=== PATIENT | female | born 1955 | race Caucasian/White ===

== ENCOUNTER 2020-05-14 06:19 | Day surgery (SDC) | payer MEDICARE, BC, SELFPAY ==
[2020-05-14 06:30] VITALS: BP 140/78; PULSE 65; RESP 16; TEMP 36.7; O2SAT 95
[2020-05-14] MEDS: Lactated Ringers 1,000 ML 80 ML IV ×2 (06:54→07:52)
--- NOTE | 2020-05-14 07:16 | HPE_ITS ---
Date of service: 05/14/20 Time of Service: 07:16 History of Present Illness History of Present Illness Chief Complaint: right bunion deformity Narrative: 64-year-old female with progressive pain associated with a right bunion deformity which is now interfering with shoe gear comfortable ambulation. Nonoperative treatments have failed to provide sufficient relief of symptoms. [facility] Medical History Chronic toe pain, left foot H/O tinea corporis Hyperlipemia Surgical History H/O: hysterectomy History of bunionectomy of left great toe Social History Smoking/Tobacco Use Status: Never Alcohol Intake: current Alcohol Intake frequency: a few times a week Drug use: Never Substance use type: does not use Do you feel safe at home: Yes Do you feel safe in your relationship?: Yes Meds Home Medications and Allergies Home Medications Medication Instructions Recorded Confirmed Type ketoconazole 30 gm TOPICAL PRN PRN 07/07/15 05/11/20 History lorazepam 0.5 mg PO PRN PRN 07/07/15 05/14/20 History simvastatin 40 mg PO HS 07/07/15 05/14/20 History ibuprofen 600 mg PO .1 PO Q6H PAIN #40 tab 07/09/15 05/11/20 Rx Allergies Allergy/AdvReac Type Severity Reaction Status Date / Time No Known Drug Allergies Allergy Unverified 05/14/20 06:28 insect stings AdvReac Unknown Uncoded 05/14/20 06:28 Exam Narrative Exam Narrative: 64-year-old female in no acute distress for surgical repair of right bunion deformity. Head is normocephalic Eyes PERRLA Hearing is adequate Uvular is midline airway looks assessable no suspicious oral lesions noted Heart had regular rate and rhythm. I detected no gallops rubs or murmurs Lung yoo were clear Abdomen was soft, bowel sounds x4 Peripheral pulses are manually pulse palpable at the ankles graded minus 2 out of 4 to plus 1 out of 4. No peripheral edema was noted. Capillary refills under 3 seconds to all toes. Muscle groups of 5 out of 5 bilaterally Skeletal exam is remarkable for a right HAV deformity. Large medial bump noted. Periarticular tenderness appreciated to direct palpation. No joint effusion identified no crepitance noted. Lateral rotation of the hallux is appreciated. Neurologically grossly intact. Toes were downgoing. Impressions: Symptomatic right HAV deformity. Plan: Sylvia is being brought to the OR for surgical repair of right bunion deformity. Risk and complications have been discussed including the potential for pain, scarring, infection, nonunion, malunion, delayed union of the osteotomy potentially requiring revisional procedures. Difficulty with retained hardware potentially requiring its removal was discussed. No promises made to the final outcome of surgery. Informed consents been obtained. Results Last Vital Signs Temp 36.7 C 05/14/20 06:30 Pulse 65 05/14/20 06:30 Resp 16 05/14/20 06:30 BP 140/78 05/14/20 06:30 Pulse Ox 95 05/14/20 06:30 COVID-19 Screening Have you,or household,traveled outside [place] in last 14 days?: No Had IN PERSON contact w/suspected or confirmed C-19 person: No
[2020-05-14] MEDS: ceFAZolin 1 GM/50 ML BAG IVPB (07:27)
[2020-05-14] MEDS: Bupivacaine 0.5% Pres-Free 30 ML VIAL (07:32)
[2020-05-14] MEDS: Lidocaine 1% Multi-Dose 50 ML VIAL (07:32)
[2020-05-14] MEDS: Dexamethasone 4 MG/ML VIAL (08:27)
--- NOTE | 2020-05-14 08:43 | ROE_ITS ---
Date of service: 05/14/20 Time of Service: 08:43 Operative Note Operative Note DATE OF PROCEDURE: 05/14/20 PRE-OP DIAGNOSIS: Hallux abductovalgus deformity right foot POST-OP DIAGNOSIS: same PROCEDURE: Kieran type bunionectomy with internal screw fixation 2.7 Synthes cortical SURGEON: Olvin Solorzano ANESTHESIA: MAC ESTIMATED BLOOD LOSS: 1 PATHOLOGY: none sent TOURNIQUET TIME: 53 COMPLICATIONS: None Patient was transported to: same day Patient's condition: stable Implants: Synthes 2.7 cortical screw Indications: Cyst 64-year-old female with progressive pain associated with a right bunion deformity which is interfering with weightbearing ambulation shoe gear and daily activities poorly responsive to nonoperative treatment. Procedure Description: Sylvia was brought to the operative suite placed in the supine position timeout was performed by protocol. The right foot was anesthetized with 10 cc of a 50: 50 mixture, 1% lidocaine plain, 0.5% Marcaine plain. The right foot was then prepped and draped in the usual sterile podiatric fashion. The right foot was exsanguinated well-padded ankle tourniquet inflated 250 mmHg. Attention was directed to the dorsal aspect of the first MPJ where a 5 cm incision was made medial parallel to the EHL tendon. The incision was deepened in controlled depth fashion hemostasis acquired with electrocautery as needed. Contracture along the lateral side of the joint was appreciated so a lateral capsulotomy and adductor tendon release was performed. Attention was now directed to the medial side of the joint with an inverted L capsulotomy was performed. The first metatarsal head was delivered into the surgical wound. Hypertrophy along the medial and dorsal aspect of the first metatarsal head was appreciated. Mild degenerative change of the articular surfaces were noted. With power instrumentation the medial hypertrophy from the first metatarsal head was resected. An offset V osteotomy was then performed through the O fragment of the first metatarsal head. The head was translocated laterally impacted and fixated with a 2.7 Synthes cortical screw 14 mm in length. A second screw was attempted but it spun out and was removed. There was excellent stability within the osteotomy and the single screw fixation and I opted to leave her construct as it sat. The medial shelf was resected all rough and bony edges were rasped smooth. Copious irrigation was performed with normal saline. The joint capsule was repaired with simple interrupted suture 3-0 Vicryl with a medial capsulorrhaphy being performed. Subcutaneous layer was repaired with simple interrupted suture 4-0 Vicryl. The hallucis extensor hallucis brevis tendon was then tenotomized and the hallux sat in a rectus position. The skin was then coapted with a continuous running suture 4-0 Monocryl. 4 mg dexamethasone phosphate was infused deeply into the wound. Mastisol half-inch Steri-Strips Xeroform gauze fluff compression dressings were applied. Tourniquet was released at 53 minutes with vascularity returning imme diately to all toes. Sylvia left the OR with vital signs stable vascular status intact will be followed by myself in the office next week.
--- NOTE | 2020-05-14 08:50 | W.PM.DSUDISC ---
Discharge Plan Disposition Patient Disposition: HOME Condition: Good Discharge Details Attending Provider: Olvin Solorzano Primary Care Provider: Olvin Solorzano Home Meds and New Rx's Prescriptions: New hydrocodone-acetaminophen [[place]] 5-325 mg tablet 1 tab PO Q6H PRN (Reason: pain) Qty: 9 RF: 0 ibuprofen 600 mg tablet 600 mg PO Q6H PRN (Reason: pain and inflamtion) Qty: 60 RF: 1 Continued simvastatin 40 MG tablet 40 mg PO HS RF: 0 lorazepam 0.5 MG tablet 0.5 mg PO PRN PRNRF: 0 ketoconazole 30 GM cream 30 gm Topical PRN PRNRF: 0 ibuprofen 600 MG tablet 600 mg PO .1 PO Q6H PAIN Qty: 40 RF: 1 Discharge Instructions Activity:: Activity as Tolerated Remove Dressings/Wound Care:: Do Not Remove Shower/Bathe:: Cover Diet:: Normal Diet Discharge Orders Discharge Orders: Discharge Order (Routine); Ordered 05/14/20 Ordered By: Olvin Solorzano DS: Diagnosis Discharge Diagnosis (1) Hallux valgus (acquired), right foot: Status: Acute
[2020-05-14 09:14] VITALS: BP 136/81; PULSE 70; RESP 16; TEMP 36.6; O2SAT 93
== END 2020-05-14 09:45 | disposition home or self-care (01) ==
PROVIDERS: PCP Podiatrist; Visit Provider Podiatrist
PROC: (CPT 28292; principal; 2020-05-14 07:30)
DX: M20.11 Hallux valgus (acquired), right foot (principal)
CPT/HCPCS: 28296; 99223; J0690; J1100; J2001

== ENCOUNTER 2020-07-23 06:17 | Day surgery (SDC) | payer MEDICARE, BC, SELFPAY ==
[2020-07-23 06:42] VITALS: BP 142/77; PULSE 70; RESP 18; TEMP 36.3; O2SAT 96
[2020-07-23] MEDS: Lactated Ringers 1,000 ML 80 ML IV (07:02)
[2020-07-23] MEDS: ceFAZolin 1 GM/50 ML BAG IVPB (07:31)
[2020-07-23] MEDS: Bupivacaine 0.5% Pres-Free 30 ML VIAL (07:43)
--- NOTE | 2020-07-23 07:59 | PDOC.DSDIS_ITS ---
Discharge Plan Disposition Patient Disposition: HOME Condition: Good Discharge Details Reason For Visit: removal symptomatic hardware right 1st metatarsal Attending Provider: Olvin Solorzano Primary Care Provider: Isidra Almaraz Home Meds and New Rx's Prescriptions: No Action simvastatin 40 MG tablet 40 mg PO HS RF: 0 lorazepam 0.5 MG tablet 0.5 mg PO PRN PRNRF: 0 ketoconazole 30 GM cream 30 gm Topical PRN PRNRF: 0 ibuprofen 600 MG tablet 600 mg PO .1 PO Q6H PAIN Qty: 40 RF: 1 hydrocodone-acetaminophen [[place]] 5-325 mg tablet 1 tab PO Q6H PRN (Reason: pain) Qty: 9 RF: 0 ibuprofen 600 mg tablet 600 mg PO Q6H PRN (Reason: pain and inflamtion) Qty: 60 RF: 1 Discharge Instructions Activity:: Elevate Remove Dressings/Wound Care:: Do Not Remove Shower/Bathe:: Cover Diet:: Normal Diet Discharge Orders Discharge Orders: Discharge Order (Routine); Ordered 07/23/20 Ordered By: Olvin Solorzano DS: Diagnosis Discharge Diagnosis (1) Fixation hardware in foot: Status: Acute
--- NOTE | 2020-07-23 08:01 | W.PM.OP ---
Date of service: 07/23/20 Time of Service: 08:01 Operative Note Operative Note DATE OF PROCEDURE: 07/23/20 PRE-OP DIAGNOSIS: Symptomatic hardware left first metatarsal neck right foot PROCEDURE: Removal symptomatic screw first metatarsal neck right. SURGEON: Olvin Solorzano ANESTHESIA: local ESTIMATED BLOOD LOSS: 1 PATHOLOGY: none sent COMPLICATIONS: None Patient was transported to: same day Patient's condition: stable Indications: 64-year-old female status post bunionectomy with osteotomy internal screw fixation with symptoms associated with a loose screw requiring surgical removal first metatarsal neck right foot. Procedure Description: Sylvia was brought to the operative suite placed in the supine position with the right foot was prepped and draped in the usual sterile podiatric fashion. Local anesthesia was employed with 5 cc of a 50: 50 mixture 1% lidocaine with epinephrine, 0.5% Marcaine plain. A 1 cm incision was placed over the previous cicatrix over the prominent screw. The incision was deepened with a curved hemostat. The extensor tendon was retracted laterally. A Mobile elevator was then used and blunt dissection performed coming down to the screw head just above the bony surface. Soft tissue was removed from the screw head and the local [place] truck driver was used to successfully remove the retained screw. Copious irrigation was performed with normal saline. The wound was closed with simple interrupted suture 4-0 nylon. Xeroform gauze fluff pressure dressing was applied. Sponge and sharp counts were correct. Sylvia left the OR with vital signs stable vascular status. She will be followed next week.
[2020-07-23 08:27] VITALS: BP 116/71; PULSE 65; RESP 16; TEMP 36.3; O2SAT 95
== END 2020-07-23 08:53 | disposition home or self-care (01) ==
PROVIDERS: PCP Internal Medicine; Visit Provider Podiatrist
PROC: (CPT 20680; principal; 2020-07-23 07:30)
DX: Z96.7 Presence of other bone and tendon implants (principal); T84.89XA Other specified complication of internal orthopedic prosthetic devices, implants and grafts, initial encounter
CPT/HCPCS: 20680; J0690

== ENCOUNTER → 2025-07-16 13:47 | Outpatient (BNVA) | payer MEDICARE, BC, SELFPAY | PROVIDERS: PCP Internal Medicine; Referring Provider Internal Medicine; Visit Provider Podiatrist | DX: M20.42 Other hammer toe(s) (acquired), left foot (principal); S90.32XA Contusion of left foot, initial encounter; W20.8XXA Other cause of strike by thrown, projected or falling object, initial encounter | CPT/HCPCS: 99203 ==

== ENCOUNTER → 2025-07-16 15:13 | Outpatient (CLI) | payer MEDICARE, BC, SELFPAY ==
--- NOTE | 2025-07-16 14:30 | DI.RAD_ITS ---
Exam(s) XR FOOT LT COMPLETE EXAM: XR FOOT LT COMPLETE CLINICAL HISTORY: Left 2nd toe pain/injury, S93.505A, sprain lt second toe. TECHNIQUE: 2D digital imaging was performed. Three views. COMPARISON: No exams were available for comparison FINDINGS: BONES: No acute fracture is present. No bony destructive lesion is seen. Postsurgical changes with screw in place at the 1st metatarsal head. JOINTS: No dislocation present. There are degenerative changes at the 1st MTP joint and proximal interphalangeal joint the 2nd toe. SOFT TISSUE: Normal. IMPRESSION: Degenerative and postsurgical changes. No acute abnormality. DATA REPOSITORY: RADIATION DOSE DELIVERED:
== END ==
LOC: DI 15:14
PROVIDERS: PCP Internal Medicine; Visit Provider Podiatrist
DX: S93.505D Unspecified sprain of left lesser toe(s), subsequent encounter (principal); X58.XXXD Exposure to other specified factors, subsequent encounter
CPT/HCPCS: 99203; 73630